=== PATIENT | female | born 1945 | race African-American/Black ===

== ENCOUNTER 2019-04-01 16:01 | Emergency (ER) | payer BC, MEDICARE ==
[~2019-04-01] VITALS: Ht 165.1 cm; Wt 82.0 kg
[2019-04-01] MEDS ORDERED: ATEN50TA PO (16:10)
[2019-04-01] MEDS ORDERED: APIX2.5T PO (16:10)
[2019-04-01 16:25] VITALS: BP 154/74
[2019-04-01] MEDS ORDERED: ACETAMINOPHEN 325MG TABLET PO ONE (17:00)
== END 2019-04-01 18:15 | disposition home or self-care (01) ==
LOC: ER 16:01
DX: M54.2 Cervicalgia (principal); I10 Essential (primary) hypertension
CPT/HCPCS: 72040; 99283